=== PATIENT | female | born 1990 | race Caucasian/White ===

== ENCOUNTER 2017-03-30 10:23 | Emergency (ER) | payer OTHER ==
[2017-03-30 10:40] VITALS: BP 123/73; PULSE 88; TEMP 98.1; BMI 33.9
--- NOTE | 2017-03-30 11:42 | PDOC ---
History of Present Illness - General Chief Complaint: Sore Throat Stated Complaint: POSSIBLE STREP THROAT Time Seen by Provider: 03/30/17 11:28 History Source: Patient Exam Limitations: No Limitations - History of Present Illness Initial Comments: 03/30/17 11:38 c/o sore throat since yesterday, low grade fever. Pt's son with same symptoms and rash. no vomiting or diarrhea. Severity: mild Past History - Past Medical History Allergies/Adverse Reactions: Allergies Allergy/AdvReac Type Severity Reaction Status Date / Time kiwi Allergy Intermediate itchy Verified 03/30/17 10:35 throat No Known Drug Allergies Allergy Verified 03/30/17 10:35 Home Medications: Ambulatory Orders Amoxicillin - [Amoxicillin 500mg Capsule -] 500 mg PO BID #20 capsule 03/30/17 Anemia: No Asthma: No Cancer: No Cardiac Disorders: No COPD: No Diabetes: No GI Disorders: Yes (ULCERS) HTN: No Seizures: No Thyroid Disease: No - Surgical History Abdominal Surgery: No Appendectomy: No - Reproductive History (#): 1 Para: 1 - Immunization History Immunization Up to Date: Yes - Suicide/Smoking/Psychosocial Hx Smoking Status: No Smoking History: Never smoked Have you smoked in the past 12 months: No Number of Cigarettes Smoked Daily: 0 Cigars Per Day: 0 Hx Alcohol Use: No Drug/Substance Use Hx: No Substance Use Type: None Hx Substance Use Treatment: No Review of Systems - Review of Systems Able to Perform ROS?: Yes Is the patient limited Macedonian proficient: No Constitutional: Yes: Symptoms Reported HEENTM: Yes: Symptoms Reported Respiratory: No: Symptoms reported Cardiac (ROS): No: Symptoms Reported ABD/GI: No: Symptoms Reported : No: Symptoms Reported Musculoskeletal: No: Symptoms Reported Integumentary: No: Symptoms Reported Neurological: No: Symptoms reported *Physical Exam - Vital Signs Last Vital Signs Temp Pulse Resp BP Pulse Ox 98.1 F 88 17 123/73 98 03/30/17 10:35 03/30/17 10:35 03/30/17 10:35 03/30/17 10:35 03/30/17 10:35 - Physical Exam General Appearance: Yes: Nourished, Appropriately Dressed HEENT: positive: EOMI, ALEX, Pharynx Normal, Pharyngeal Erythema, Tonsillar Erythema. negative: TMs Normal, Tonsillar Exudate Neck: positive: Supple. negative: Tender Respiratory/Chest: positive: Lungs Clear. negative: Chest Tender, Respiratory Distress Cardiovascular: positive: Regular Rhythm, Regular Rate Gastrointestinal/Abdominal: positive: Normal Bowel Sounds, Soft. negative: Tender Lymphatic: negative: Adenopathy Musculoskeletal: positive: Normal Inspection Extremity: positive: Normal Capillary Refill, Normal Inspection, Normal Range of Motion Integumentary: positive: Normal Color, Dry, Warm Neurologic: positive: contact lens flashing puncher II-XII NML intact, Fully Oriented, Alert, Normal Mood/ Affect, Normal Response, Motor Strength /5 Medical Decision Making - Medical Decision Making 03/30/17 11:57 26yr female with c/o sore throat for 2 days and low grade fever. no abd pain. pt states her son has rash and sore throat. pos exudate on left tonsil will treat for strep son with sandpaper rash non toxic stable vitals 03/30/17 11:59 *DC/Admit/Observation/Transfer Diagnosis at time of Disposition: Strep throat - Discharge Dispostion Disposition: HOME Condition at time of disposition: Good - Prescriptions Prescriptions: Amoxicillin - [Amoxicillin 500mg Capsule -] 500 mg PO BID #20 capsule - Referrals - Patient Instructions Additional Instructions: gargle with warms alt water 4-5 times a day take motrin as needed for fever or pain take the Amoxicillin as directed for 10 days return to ER for any worsening symptoms - Post Discharge Activity Forms/Work/School Notes: Back to Work
== END 2017-03-30 11:52 | disposition home or self-care (01) ==
LOC: JERFT 10:23 → JER 10:23 → JERFT 11:52
DX: J02.0 Streptococcal pharyngitis (principal); B95.5 Unspecified streptococcus as the cause of diseases classified elsewhere
CPT/HCPCS: 99281-25

== ENCOUNTER 2017-07-02 10:16 | Emergency (ER) | payer OTHER ==
[2017-07-02 10:31] VITALS: TEMP 98; BMI 33.9
--- NOTE | 2017-07-02 10:34 | PDOC ---
History of Present Illness - General Chief Complaint: Pain Stated Complaint: LT SIDE PAIN Time Seen by Provider: 07/02/17 10:34 - History of Present Illness Initial Comments: 07/02/17 10:34 Ms. Quezada is a 26 yo female w/ pmh of GERD and distant gastric ulcers who presents for evaluation of 1 week of LUQ abdominal pain. She reports this has been intermittent although she cannot relate it to anything specific. She was previously evaluated 1 week ago when this first started and received a right The patient denies chest pain, shortness of breath, headache and dizziness. Denies fever, chills, nausea, vomit, diarrhea and constipation. Denies dysuria, frequency, urgency and hematuria. Allergies: NKDA Past History - Past Medical History Allergies/Adverse Reactions: Allergies Allergy/AdvReac Type Severity Reaction Status Date / Time kiwi Allergy Intermediate itchy Verified 07/02/17 10:26 throat No Known Drug Allergies Allergy Verified 07/02/17 10:26 Home Medications: Ambulatory Orders Omeprazole 20 mg PO DAILY 07/02/17 Sucralfate [Carafate -] 1 gm PO BID #14 tablet 07/02/17 Anemia: No Asthma: No Cancer: No Cardiac Disorders: No COPD: No Diabetes: No GI Disorders: Yes (ULCERS) HTN: No Seizures: No Thyroid Disease: No - Surgical History Abdominal Surgery: No Appendectomy: No - Reproductive History (#): 1 Para: 1 - Immunization History Immunization Up to Date: Yes - Suicide/Smoking/Psychosocial Hx Smoking Status: No Smoking History: Never smoked Have you smoked in the past 12 months: No Number of Cigarettes Smoked Daily: 0 Cigars Per Day: 0 Hx Alcohol Use: No Drug/Substance Use Hx: No Substance Use Type: None Hx Substance Use Treatment: No Review of Systems - Review of Systems Comments:: 07/02/17 10:34 GENERAL/CONSTITUTIONAL: No fever or chills. No weakness. HEAD, EYES, EARS, NOSE AND THROAT: No change in vision. No ear pain or discharge. No sore throat. CARDIOVASCULAR: No chest pain or shortness of breath RESPIRATORY: No cough, wheezing, or hemoptysis. GASTROINTESTINAL: +LLE intermittent pain. No nausea, vomiting, diarrhea or constipation. GENITOURINARY: No dysuria, frequency, or change in urination. MUSCULOSKELETAL: No joint or muscle swelling or pain. No neck or back pain. SKIN: No rash NEUROLOGIC: No headache, vertigo, loss of consciousness, or change in strength/ sensation. ENDOCRINE: No increased thirst. No abnormal weight change HEMATOLOGIC/LYMPHATIC: No anemia, easy bleeding, or history of blood clots. ALLERGIC/IMMUNOLOGIC: No hives or skin allergy. *Physical Exam - Vital Signs Last Vital Signs Temp Pulse Resp BP Pulse Ox 98 F 82 19 117/71 99 07/02/17 10:07/02/17 10:07/02/17 10:07/02/17 10:07/02/17 10:26 - Physical Exam Comments: 07/02/17 10:34 GENERAL: Awake, alert, and fully oriented, in no acute distress HEAD: No signs of trauma, normocephalic, atraumatic EYES: PERRLA, EOMI, sclera anicteric, conjunctiva clear ENT: Auricles normal inspection, hearing grossly normal, nares patent, oropharynx clear without exudates. Moist mucosa NECK: Normal ROM, supple, no lymphadenopathy, JVD, or masses LUNGS: No distress, speaks full sentences, clear to auscultation bilaterally HEART: Regular rate and rhythm, normal S1 and S2, no murmurs, rubs or gallops, peripheral pulses normal and equal bilaterally. ABDOMEN: +LUQ TTP. Soft, normoactive bowel sounds. No guarding, no rebound. No masses EXTREMITIES: Normal inspection, Normal range of motion, no edema. No clubbing or cyanosis. NEUROLOGICAL: Cranial nerves II through XII grossly intact. Normal speech, normal gait, no focal sensorimotor deficits SKIN: Warm, Dry, normal turgor, no rashes or lesions noted. ED Treatment Course - LABORATORY CBC & Chemistry Diagram: 07/02/17 11:45 07/02/17 11:45 Medical Decision Making - Medical Decision Making 07/02/17 11:58 Ms. Quezada is a 26 yo female w/ pmh as described who presents for evaluation of LUQ pain for the last week. History and PE concerning for repeat gastric ulcer. Patient given carafate and protonix for symptomatic and therapeutic relief. Labs grossly wnl as below. 07/02/17 13:05 Patient reporting improvement of symptoms w/ above treatment. Discharging with GI follow-up and Rx for Carafate for treatment. Patient will follow-up [facility] with GI for further evaluation. Laboratory Results - last 24 hr 07/02/17 07/02/17 07/02/17 11:45 11:45 11:45 WBC 3.8 L D RBC 5.03 Hgb 13.5 Hct 40.8 MCV 81.1 MCH 26.8 MCHC 33.1 RDW 12.9 Plt Count 310 MPV 7.0 L Neutrophils % 43.3 D Lymphocytes % 36.9 D Monocytes % 12.5 H Eosinophils % 6.3 H D Basophils % 1.0 Nucleated RBC % 0 Sodium 139 Potassium 4.3 Chloride 107 Carbon Dioxide 25 Anion Gap 7 L BUN 16 Creatinine 0.8 Creat Clearance w eGFR > 60 Random Glucose 110 H Calcium 8.6 Total Bilirubin 0.3 AST 18 ALT 34 Alkaline Phosphatase 68 Total Protein 7.3 Albumin 3.7 Lipase 100 Urine Color Ltyellow Urine Appearance Clear Urine pH 5.0 Ur Specific [place] 1.019 Urine Protein Negative Urine Glucose (UA) Negative Urine Ketones Negative Urine Blood 1+ H Urine Nitrite Negative Urine Bilirubin Negative Urine Urobilinogen Negative Ur Leukocyte Esterase Negative Urine HCG, Qual Negative *DC/Admit/Observation/Transfer Diagnosis at time of Disposition: Abdominal pain Qualifiers: Abdominal location: left upper quadrant Qualified Code(s): R10.12 - Left upper quadrant pain - Discharge Dispostion Disposition: HOME - Prescriptions Prescriptions: Sucralfate [Carafate -] 1 gm PO BID #14 tablet - Referrals Referrals: Florain Baumann MD [Staff Physician] - - Patient Instructions Printed Discharge Instructions: DI for Gastric Ulcer Additional Instructions: Please follow-up with Gastroenterology using provided information next week. Take prescriptions as written unless directed not to by another medical professional. Return to ER if any increase in pain, fever, chills, or other concerning symptoms. - Post Discharge Activity Forms/Work/School Notes: Back to Work
--- NOTE | 2017-07-02 10:38 | PDOC ---
Attending Attestation - HPI HPI: 07/02/17 11:58 Pt is a 26 yo F with PMHx of GERD and gastric ulcers who presents to the ED with LUQ abdominal pain for the past week. Patient reports pain is dull, 7/10 in severity with associated nausea and vomiting. Patient denies fever/chills, diarrhea, constipation. PCP: None - Medical Decision Making 07/02/17 11:58 Documentation prepared by Ale Silva, acting as medical coding technician for Maria Fernanda Wills MD <Ale Silva - Last Filed: 07/02/17 11:58> - Resident Resident Name: Thierno Carver - ED Attending Attestation I have performed the following: I have examined & evaluated the patient, The case was reviewed & discussed with the resident, I agree w/resident's findings & plan, Exceptions are as noted - Physicial Exam PE: GENERAL: Awake, alert, and fully oriented, in no acute distress HEAD: No signs of trauma EYES: PERRLA, EOMI, sclera anicteric, conjunctiva clear ENT: Auricles normal inspection, hearing grossly normal, nares patent, oropharynx clear without exudates. Moist mucosa NECK: Normal ROM, supple, no lymphadenopathy, JVD, or masses LUNGS: Breath sounds equal, clear to auscultation bilaterally. No wheezes, and no crackles HEART: Regular rate and rhythm, normal S1 and S2, no murmurs, rubs or gallops ABDOMEN: Soft, +minimal LUQ tenderness, normoactive bowel sounds. No guarding, no rebound. No masses EXTREMITIES: Normal range of motion, no edema. No clubbing or cyanosis. No cords, erythema, or tenderness NEUROLOGICAL: Cranial nerves II through XII grossly intact. Normal speech, normal gait. Motor and sensation intact. SKIN: Warm, Dry, normal turgor, no rashes or lesions noted. - Medical Decision Making Pt with history of PUD presenting with LUQ pain. No signs of acute abdomen, therefore low suspicion for perf. Suspect GERD/PUD. Will give GI cocktail and reassess. Likely DC home with outpatient GI f/u. <Maria Fernanda Wills - Last Filed: 07/02/17 13:05>
[2017-07-02] MEDS ORDERED: SODIUM CHLORIDE 1,000 ML IV STA (11:22)
[2017-07-02] MEDS ORDERED: PANTOPRAZOLE SODIUM 40 MG VIAL IVPUSH ONE (11:46)
[2017-07-02 12:00] LABS: EOS % 6.3 % (0-4.5); HEMATOCRIT 40.8 % (32.4-45.2); HEMOGLOBIN 13.5 GM/dL (10.7-15.3); LYMPH % 36.9 % (8-40); MCH 26.8 pg (25.7-33.7); MCHC 33.1 g/dl (32.0-36.0); MEAN CELL VOLUME 81.1 fl (80-96); MONO % 12.5 % (3.8-10.2); NEUT % 43.3 % (42.8-82.8); PLATELET COUNT 310 K/MM3 (134-434); RBC 5.03 M/mm3 (3.60-5.2); RDW 12.9 % (11.6-15.6); WHITE BLOOD COUNT 3.8 K/mm3 (4.0-10.0)
[2017-07-02] MEDS ORDERED: SUCRALFATE 1 GM TABLET (FP) PO ONE (12:00)
[2017-07-02] MEDS ORDERED: SUCRALFATE 1 GM TABLET (FP) ONE (12:01)
[2017-07-02] MEDS ORDERED: PANTOPRAZOLE SODIUM 40 MG VIAL ONE (12:02)
[2017-07-02 12:04] LABS: URINE APPEARANCE CLEAR; URINE BILIRUBIN NEGATIVE (<2.0 mg/dL); URINE COLOR LTYELLOW; URINE GLUCOSE (UA) NEGATIVE (NEGATIVE); URINE KETONE NEGATIVE (NEGATIVE); URINE LEUK ESTERASE NEGATIVE (NEGATIVE); URINE NITRITE NEGATIVE (NEGATIVE); URINE PROTEIN NEGATIVE (NEGATIVE); URINE UROBILINOGEN NEGATIVE mg/dL (0.2-1.0)
[2017-07-02] MEDS ORDERED: PANTOPRAZOLE SODIUM 40 MG/100 ML BAG IVPB ONE (12:05)
[2017-07-02 12:09] LABS: HCG,QUALITATIVE URINE NEGATIVE
[2017-07-02 12:22] LABS: ALBUMIN 3.7 g/dl (3.4-5.0); ALK PHOS 68 U/L (45-117); ANION GAP 7 (8-16); BILIRUBIN,TOTAL 0.3 mg/dL (0.2-1.0); BLOOD UREA NITROGEN 16 mg/dL (7-18); CALCIUM 8.6 mg/dL (8.5-10.1); CHLORIDE 107 mmol/L (98-107); CO2 25 mmol/L (21-32); CREATININE 0.8 mg/dL (0.55-1.02); GLUCOSE,RANDOM 110 mg/dL (74-106); LIPASE 100 U/L (73-393); POTASSIUM 4.3 mmol/L (3.5-5.1); SGOT/AST 18 U/L (15-37); SGPT/ALT 34 U/L (12-78); SODIUM 139 mmol/L (136-145); TOT PROT 7.3 g/dl (6.4-8.2)
[2017-07-02 12:59] LABS: EPI CELLS RARE /HPF (FEW); URINE BACTERIA RARE /hpf (NONE SEEN); URINE MUCUS RARE
[2017-07-02 14:25] VITALS: BP 120/72; PULSE 58
== END 2017-07-02 14:00 | disposition home or self-care (01) ==
LOC: JER 10:16
PROC: 3E0337Z Introduction of Electrolytic and Water Balance Substance into Peripheral Vein, Percutaneous Approach (ICD-10-PCS; principal; 2017-07-02)
PROC: 3E033GC Introduction of Other Therapeutic Substance into Peripheral Vein, Percutaneous Approach (ICD-10-PCS; 2017-07-02)
DX: R10.12 Left upper quadrant pain (principal); K21.9 Gastro-esophageal reflux disease without esophagitis; Z87.19 Personal history of other diseases of the digestive system
CPT/HCPCS: 36415; 80053; 81003; 81015; 83690; 84703; 85025; 96361; 96374; 99282-25; J7030

== ENCOUNTER 2017-08-31 09:48 | Day surgery (SDC) | payer OTHER ==
[2017-08-31 10:38] VITALS: BMI 34.7
[2017-08-31 11:02] VITALS: TEMP 98.3
[2017-08-31 12:08] VITALS: BP 116/78; PULSE 60
--- NOTE | 2017-08-31 13:16 | PROC ---
Endoscopy Procedure Endoscopy procedure completed. Please see scanned procedure report.
--- NOTE | 2017-09-01 13:01 | PATH ---
Surgical Pathology Report Patient Name: BRIANNA GRACIA [facility]. Rec. #: [id number] /Age/Gender: 1990 (Age: 27) / F Account: [id number] Location: U-ENDOSCOPY Taken: 08/31/2017 Received: 08/31/2017 Reported: 09/01/2017 Physicians: Florian Baumann M.D. Specimen(s) Received A: BX 2ND PORTION DUODENUM B: BX ANTRUM Clinical History Epigastric pain, history of gastric ulcer Postoperative diagnosis: Same Final Diagnosis A. SECOND PORTION DUODENUM, BIOPSY: DUODENAL MUCOSA WITH NO DIAGNOSTIC ABNORMALITIES. B. ANTRUM, BIOPSY: GASTRIC MUCOSA WITH MILD CHRONIC GASTRITIS. IMMUNOSTAIN IS NEGATIVE FOR H. PYLORI ORGANISMS. Electronically Signed Pola Tirado M.D. Gross Description A. Received in formalin, labeled "biopsy second portion of duodenum" are 2 [place], irregular portions of soft tissue measuring 0.2 and 0.3 cm. in greatest dimension. The specimens are submitted in toto in one cassette. B. Received in formalin, labeled "biopsy antrum" are 2 [place], irregular portions of soft tissue measuring 0.3 and 0.4 cm. in greatest dimension. The specimens are submitted in toto in one cassette. /08/31/201708/31/2017
== END 2017-08-31 12:20 | disposition home or self-care (01) ==
LOC: JASU-ENDO 09:48
PROVIDERS: ATTEND Internal Medicine Gastroenterology
PROC: 0DB68ZX Excision of Stomach, Via Natural or Artificial Opening Endoscopic, Diagnostic (ICD-10-PCS; 2017-08-31)
PROC: 0DB98ZX Excision of Duodenum, Via Natural or Artificial Opening Endoscopic, Diagnostic (ICD-10-PCS; principal; 2017-08-31 09:00)
DX: R10.13 Epigastric pain (principal)
CPT/HCPCS: 84703; 88305-TC; 88342-TC

== ENCOUNTER 2018-04-24 20:41 | Emergency (ER) | payer OTHER ==
[2018-04-24 21:25] VITALS: BP 132/91; PULSE 85; TEMP 98; BMI 37.1
--- NOTE | 2018-04-24 21:26 | PDOC ---
Rapid Medical Evaluation Medical Evaluation: Allergies Allergy/AdvReac Type Severity Reaction Status Date / Time kiwi Allergy Intermediate itchy Verified 07/02/17 10:26 throat No Known Drug Allergies Allergy Verified 07/02/17 10:26 I have performed a brief in-person evaluation of this patient. The patient presents with a chief complaint of: Cough x 3 months, worsening past 2 days; cough can be dry or with phlegm at times; denies smoking; not taking any meds Pertinent physical exam findings: In NAD, no postnasal drip, lungs clear I have ordered the following: UCG, CXR The patient will proceed to the ED for further evaluation. 04/24/18 21:22
[2018-04-24] MEDS ORDERED: ALBUTEROL SO4 2.5/IPRATROPIUM 0.5 INH SOL 3 ML VIAL.NEB. NEB ONE (23:38)
[2018-04-24] MEDS ORDERED: predniSONE 20 MG TABLET (UD) PO ONE (23:38)
--- NOTE | 2018-04-24 23:38 | PDOC ---
History of Present Illness - General History Source: Patient Exam Limitations: No Limitations - History of Present Illness Initial Comments: 04/24/18 23:55 The patient is a 27 year old female with a past medical history of gastric duodenal ulcer who presents to the emergency department for evaluation of a 2 month history of dry non productive cough. Patient reports worsening dry cough in the last 3 days, exacerbated with deep inspiration. 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 Denies headache fevers, chills, nausea, vomiting, diarrhea, constipation, urinary urgency/frequency, dysuria, or hematuria. Denies smoking, recent travel, or prolonged period of immobility. She denies taking any medication for the aforementioned symptom. Allergies: Kiwi, NKDA. 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 No reported alcohol, cigarette, or drug use. Surgical History: gastric duodenal surgery PCP: Dr. Thompson <Trinidad Louis - Last Filed: 04/24/18 23:55> <Cara Wahl - Last Filed: 04/25/18 00:39> - General Chief Complaint: Respiratory Stated Complaint: COUGH Time Seen by Provider: 04/24/18 21:22 Past History <Trinidad Louis - Last Filed: 04/24/18 23:55> - Past Medical History Anemia: No Asthma: No Cancer: No Cardiac Disorders: No COPD: No Diabetes: No GI Disorders: Yes (ULCERS) HTN: No Seizures: No Thyroid Disease: No - Surgical History Abdominal Surgery: No Appendectomy: No - Reproductive History (#): 1 Para: 1 - Immunization History Immunization Up to Date: Yes - Suicide/Smoking/Psychosocial Hx Smoking Status: No Smoking History: Never smoked Have you smoked in the past 12 months: No Number of Cigarettes Smoked Daily: 0 Cigars Per Day: 0 Information on smoking cessation initiated: No Hx Alcohol Use: No Drug/Substance Use Hx: No Substance Use Type: None Hx Substance Use Treatment: No <Cara Wahl - Last Filed: 04/25/18 00:39> - Past Medical History Allergies/Adverse Reactions: Allergies Allergy/AdvReac Type Severity Reaction Status Date / Time kiwi Allergy Intermediate itchy Verified 04/24/18 21:25 throat No Known Drug Allergies Allergy Verified 04/24/18 21:25 Home Medications: Ambulatory Orders Omeprazole 20 mg PO DAILY 07/02/17 Etonogestrel 08/31/17 Albuterol Sulfate Inhaler - [Ventolin Hfa Inhaler -] 1 - 2 inh PO QID #1 inhaler 04/24/18 Azithromycin [Zithromax -] 250 mg PO UTDICT #6 tab 04/24/18 Methylprednisolone [Medrol Dose Pierce] 4 mg PO ASDIR #21 tablet 04/24/18 Review of Systems - Review of Systems Comments:: 04/24/18 23:56 CONSTITUTIONAL: Absent: fever, chills, diaphoresis, generalized weakness, malaise, loss of appetite HEENT: Absent: rhinorrhea, nasal congestion, throat pain, throat swelling, difficulty swallowing, mouth swelling, ear pain, eye pain, visual Changes CARDIOVASCULAR: Absent: chest pain, syncope, palpitations, irregular heart rate, lightheadedness , peripheral edema RESPIRATORY: (+)Dry cough. Absent: shortness of breath, dyspnea with exertion, orthopnea, wheezing, stridor , hemoptysis GASTROINTESTINAL: Absent: abdominal pain, abdominal distension, nausea, vomiting, diarrhea, constipation, melena, hematochezia GENITOURINARY: Absent: dysuria, frequency, urgency, hesitancy, hematuria, flank pain, genital pain MUSCULOSKELETAL: Absent: myalgia, arthralgia, joint swelling SKIN: Absent: rash, itching, pallor HEMATOLOGIC/IMMUNOLOGIC: Absent: easy bleeding, easy bruising, lymphadenopathy, frequent infections ENDOCRINE: Absent: unexplained weight gain, unexplained weight loss, heat intolerance, cold intolerance NEUROLOGIC: Absent: headache, focal weakness or paresthesias, dizziness, unsteady gait, seizure, mental status changes, bladder or bowel incontinence PSYCHIATRIC: Absent: anxiety, depression, suicidal or homicidal ideation, hallucinations. <Trinidad Louis - Last Filed: 04/24/18 23:55> *Physical Exam - Vital Signs Last Vital Signs Temp Pulse Resp BP Pulse Ox 98.0 F 85 16 132/91 100 04/24/18 21:23 04/24/18 21:23 04/24/18 21:23 04/24/18 21:23 04/24/18 21:23 - Physical Exam Comments: 04/24/18 23:56 GENERAL: Well developed, well nourished. Awake and alert. No acute distress. HEENT: Normocephalic, atraumatic. PERRLA, EOMI. No conjunctival pallor. Sclera are non- icteric. Moist mucous membranes. Oropharynx is clear. NECK: Supple. Full ROM. No JVD. Carotid pulses 2+ and symmetric, without bruits. No thyromegaly. No lymphadenopathy. CARDIOVASCULAR: Regular rate and rhythm. No murmurs, rubs, or gallops. Distal pulses are 2+ and symmetric. PULMONARY: No evidence of respiratory distress. Lungs clear to auscultation bilaterally. No wheezing, rales or rhonchi. ABDOMINAL: Soft. Non-tender. Non-distended. No rebound or guarding. No organomegaly. Normoactive bowel sounds. MUSCULOSKELETAL Normal range of motion at all joints. No bony deformities or tenderness. No CVA tenderness. EXTREMITIES: No cyanosis. No clubbing. No edema. No calf tenderness. SKIN: Warm and dry. Normal capillary refill. No rashes. No jaundice. NEUROLOGICAL: Alert, awake, appropriate. Cranial nerves 2-12 intact. No deficits to light touch and temperature in face, upper extremities and lower extremities. No motor deficits in the in face, upper extremities and lower extremities. Normoreflexic in the upper and lower extremities. Normal speech. Toes are down- going bilaterally. Gait is normal without ataxia. PSYCHIATRIC: Cooperative. Good eye contact. Appropriate mood and affect. <Trinidad Louis - Last Filed: 04/24/18 23:55> - Vital Signs Last Vital Signs Temp Pulse Resp BP Pulse Ox 98.0 F 85 16 132/91 100 04/24/18 21:23 04/24/18 21:23 04/24/18 21:23 04/24/18 21:23 04/24/18 21:23 <Cara Wahl - Last Filed: 04/25/18 00:39> Moderate Sedation - Procedure Monitoring Vital Signs: Procedure Monitoring Vital Signs Temperature 98.0 F 04/24/18 21:23 Pulse Rate 85 04/24/18 21:23 Respiratory Rate 16 04/24/18 21:23 Blood Pressure 132/91 04/24/18 21:23 O2 Sat by Pulse Oximetry (%) 100 04/24/18 21:23 <Trinidad Luois - Last Filed: 04/24/18 23:55> - Procedure Monitoring Vital Signs: Procedure Monitoring Vital Signs Temperature 98.0 F 04/24/18 21:23 Pulse Rate 85 04/24/18 21:23 Respiratory Rate 16 04/24/18 21:23 Blood Pressure 132/91 04/24/18 21:23 O2 Sat by Pulse Oximetry (%) 100 04/24/18 21:23 <Cara Wahl - Last Filed: 04/25/18 00:39> ED Treatment Course - ADDITIONAL ORDERS Additional order review: Laboratory Results 04/24/18 21:38 Urine HCG, Qual Negative <Trinidad Louis - Last Filed: 04/24/18 23:55> - ADDITIONAL ORDERS Additional order review: Laboratory Results 04/24/18 21:38 Urine HCG, Qual Negative <Cara Wahl - Last Filed: 04/25/18 00:39> Medical Decision Making - Medical Decision Making 04/25/18 00:37 27-year-old female has had a dry persistent cough for more than a month. She has no fever or chills. Chest x-ray does not show any infiltrates, no effusions, no no pneumothorax. Lungs clear to auscultation impression bronchitis, atypical cough variant asthma Prescriptions for Medrol Dosepak, Zithromax, Ventolin MDI sent to her pharmacy <Cara Wahl - Last Filed: 04/25/18 00:39> *DC/Admit/Observation/Transfer - Attestations Scribe Attestion: 04/24/18 23:56 Documentation prepared by Trinidad Louis, acting as medical instrument cable fabricator for Cara Wahl MD. <Trinidad Louis - Last Filed: 04/24/18 23:55> <Cara Wahl - Last Filed: 04/25/18 00:39> Diagnosis at time of Disposition: Cough, Persistent cough for 3 weeks or longer - Discharge Dispostion Disposition: HOME Condition at time of disposition: Stable - Prescriptions Prescriptions: Albuterol Sulfate Inhaler - [Ventolin Hfa Inhaler -] 1 - 2 inh PO QID #1 inhaler Azithromycin [Zithromax -] 250 mg PO UTDICT #6 tab Methylprednisolone [Medrol Dose Pierce] 4 mg PO ASDIR #21 tablet - Referrals Referrals: Misael Fowler MD, MD [Staff Physician] - - Patient Instructions Printed Discharge Instructions: DI for Acute Bronchitis Additional Instructions: 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 Fowler
[2018-04-24] MEDS ORDERED: AZITHROMYCIN 500 MG TABLET PO ONE (23:39)
[2018-04-25] MEDS ORDERED: ALBUTEROL SO4 2.5/IPRATROPIUM 0.5 INH SOL 3 ML VIAL.NEB. NEB ONE (00:35)
[2018-04-25] MEDS ORDERED: AZITHROMYCIN 250 MG TABLET ONE (00:35)
[2018-04-25] MEDS ORDERED: predniSONE 20 MG TABLET (UD) ONE (00:35)
== END 2018-04-25 01:11 | disposition home or self-care (01) ==
LOC: JERFT 20:41 → JER 20:41
DX: R05 Cough (principal)
CPT/HCPCS: 71046-TC-FY; 84703; 87798; 99281-25

== ENCOUNTER 2018-07-22 18:50 | Emergency (ER) | payer OTHER ==
[2018-07-22 19:11] VITALS: TEMP 97.8; BMI 37.1
[2018-07-22] MEDS ORDERED: SODIUM CHLORIDE 0.9% 1000 ML INFUS.BAG IV ONE (19:30)
--- NOTE | 2018-07-22 19:50 | PDOC ---
History of Present Illness - General Chief Complaint: Headache Stated Complaint: DIZZINESS, HEADACHE Time Seen by Provider: 07/22/18 19:09 History Source: Patient Exam Limitations: No Limitations - History of Present Illness Initial Comments: 07/22/18 19:45 27F with a PMH of anxiety and pre-diabetes who presents to the ER with complaints of lightheadedness. 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 She took her BP and noticed it was 180's/100's; checked again and it was 170/105. She has never had elevated BP in the past. However, she states that she's had the tingling in her face and palms in the past. She denies any headache, numbness, weakness, changes in vision, CP, SOB, vomiting, fever, chills. She admits to feeling "kind of nauseous", lightheaded, and dysuria. She admits to getting "some" anxiety attacks in the past but denies currently feeling anxious. Past History - Past Medical History Allergies/Adverse Reactions: Allergies Allergy/AdvReac Type Severity Reaction Status Date / Time kiwi Allergy Intermediate itchy Verified 07/22/18 19:11 throat No Known Drug Allergies Allergy Verified 07/22/18 19:11 Home Medications: Ambulatory Orders Fluconazole 150 mg PO ONCE #1 tablet 07/22/18 Anemia: No Asthma: No Cancer: No Cardiac Disorders: No (pre eclampsia) COPD: No Diabetes: No GI Disorders: Yes (ULCERS) HTN: No Seizures: No Thyroid Disease: No - Surgical History Abdominal Surgery: No Appendectomy: No - Reproductive History (#): 1 Para: 1 - Immunization History Immunization Up to Date: Yes - Suicide/Smoking/Psychosocial Hx Smoking Status: No Smoking History: Current some day smoker Have you smoked in the past 12 months: No Number of Cigarettes Smoked Daily: 0 Cigars Per Day: 0 Information on smoking cessation initiated: No Hx Alcohol Use: No Drug/Substance Use Hx: No Substance Use Type: None Hx Substance Use Treatment: No Review of Systems - Review of Systems Able to Perform ROS?: Yes Comments:: 07/22/18 19:48 GENERAL/CONSTITUTIONAL: No fever or chills. No weakness. HEAD, EYES, EARS, NOSE AND THROAT: No change in vision. No ear pain or discharge. No sore throat. CARDIOVASCULAR: + for lightheadedness. No chest pain or palpitations. RESPIRATORY: No cough, wheezing, shortness of breath, or hemoptysis. GASTROINTESTINAL: + for nausea. No abdominal pain, vomiting, diarrhea, or constipation. GENITOURINARY: + for dysuria. No frequency, hematuria, or change in urination. MUSCULOSKELETAL: No joint or muscle swelling or pain. No neck or back pain. SKIN: No rash or lesions. NEUROLOGIC: + for tingling. No headache, numbness, focal weakness, loss of consciousness, or change in strength/sensation. Is the patient limited Slovak proficient: No *Physical Exam - Vital Signs Last Vital Signs Temp Pulse Resp BP Pulse Ox 97.8 F 90 16 144/105 H 100 07/22/18 18:58 07/22/18 18:58 07/22/18 18:58 07/22/18 18:58 07/22/18 18:58 - Physical Exam Comments: 07/22/18 19:49 GENERAL: Well developed, well nourished. Awake and alert. No acute distress. HEENT: Normocephalic, atraumatic. Hearing grossly normal. Moist mucous membranes. PERRLA, EOMI. No conjunctival pallor. Sclera are non-icteric. NECK: Supple. Full ROM. No JVD. CARDIOVASCULAR: Regular rate and rhythm. No murmurs, rubs, or gallops. PULMONARY: No evidence of respiratory distress. Lungs clear to auscultation bilaterally. No wheezing, rales or rhonchi. ABDOMINAL: Soft. Tenderness to deep palpation in LLQ. Non-distended. No rebound or guarding. GENITOURINARY: No CVA tenderness bilaterally. MUSCULOSKELETAL: Normal range of motion at all joints. No bony deformities or tenderness. EXTREMITIES: No cyanosis. No clubbing. No edema. No calf tenderness or swelling. SKIN: Warm and dry. Normal capillary refill. No rashes. No jaundice. NEUROLOGICAL: Alert, awake, appropriate. Cranial nerves 2-12 intact. No deficits to light touch and temperature in face, upper extremities and lower extremities. 5/5 strength in deltoids, biceps, triceps, quadriceps, hamstrings, and gastrocnemius. Normal speech. Gait is normal without ataxia. PSYCHIATRIC: Cooperative. Good eye contact. Appropriate mood and affect. ED Treatment Course - LABORATORY CBC & Chemistry Diagram: 07/22/18 19:30 07/22/18 19:30 Medical Decision Making - Medical Decision Making 07/22/18 19:50 27F with a PMH of prediabetes and anxiety who presents to the ED with complaints of lightheadedness and elevated BP. EKG unremarkable. PE unremarkable. Will obtain FS and give IV hydration. Pt also requests STI checking which has been ordered. Will check CBC, CMP, UA, TSH, drug screen. Pt otherwise well appearing. If Cr normal, will send for outpt treatment for asymptomatic HTN. BP elevated on my assessment at 140/105. 07/22/18 20:21 CBC and UA unremarkable. Upreg negative. Will give reglan. Pt states that the tingling has resolved but still feels "a little" nauseous and lightheaded. 07/22/18 21:35 Labs WNL. STI labs pending 2 days. Call back placed. Pt states she feels "much better" and has a PCP to f/u with. Will finish hydration and reassess. Cr WNL. 07/22/18 21:58 External pelvic exam done w/ Dr. Brower and RN Sonja which reveals possible candidiasis. Will give fluconazole in ED and send one for outpt use. Pt states she feels much better. Will d/c with PCP f/u. *DC/Admit/Observation/Transfer Diagnosis at time of Disposition: Lightheaded - Discharge Dispostion Disposition: HOME Condition at time of disposition: Stable Decision to Admit order: No - Prescriptions Prescriptions: Fluconazole 150 mg PO ONCE #1 tablet - Referrals Referrals: Rehana Wen [Primary Care Provider] - - Patient Instructions Printed Discharge Instructions: DI for Anxiety -- Adult Additional Instructions: Your ER visit is not complete until your follow up with your primary care physician. Please follow up with your primary care physician in 1-2 days. Please return to the ER if you have any signs or symptoms of chest pain, shortness of breath, uncontrollable fever, chills, nausea, vomiting, numbness, tingling, or weakness in any part of your body, changes in vision, or slurred speech. Take your fluconazole (Diflucan) in 72 hours if your symptoms persist. Please return to the ER if symptoms persist, worsen, or new symptoms arise. - Post Discharge Activity
[2018-07-22 19:55] LABS: BASO % 0.9 % (0-2.0); EOS % 1.1 % (0-4.5); HEMATOCRIT 38.8 % (32.4-45.2); HEMOGLOBIN 12.8 GM/dL (10.7-15.3); LYMPH % 33.2 % (8-40); MCH 27.2 pg (25.7-33.7); MCHC 33.1 g/dl (32.0-36.0); MEAN CELL VOLUME 82.1 fl (80-96); MEAN PLT VOLUME 7.2 fl (7.5-11.1); MONO % 7.7 % (3.8-10.2); NEUT % 57.1 % (42.8-82.8); PLATELET COUNT 360 K/MM3 (134-434); RBC 4.73 M/mm3 (3.60-5.2); RDW 13.1 % (11.6-15.6); WHITE BLOOD COUNT 6.7 K/mm3 (4.0-10.0)
[2018-07-22 19:57] LABS: URINE APPEARANCE CLEAR; URINE BILIRUBIN NEGATIVE (NEGATIVE); URINE COLOR YELLOW; URINE GLUCOSE (UA) NEGATIVE (NEGATIVE); URINE KETONE NEGATIVE (NEGATIVE); URINE LEUK ESTERASE NEGATIVE (NEGATIVE); URINE NITRITE NEGATIVE (NEGATIVE); URINE PROTEIN NEGATIVE (NEGATIVE)
[2018-07-22 20:00] LABS: HCG,QUALITATIVE URINE Negative
[2018-07-22] MEDS ORDERED: METOCLOPRAMIDE HCL INJECTION 10 MG/2 ML VIAL IVPB ONE (20:21)
[2018-07-22 20:32] LABS: BILIRUBIN,TOTAL 0.4 mg/dL (0.2-1); BLOOD UREA NITROGEN 11.6 mg/dL (7-18); CALCIUM 9.4 mg/dL (8.5-10.1); CREATININE 0.9 mg/dL (0.55-1.3); POTASSIUM 3.8 mmol/L (3.5-5.1); TOT PROT 7.2 g/dl (6.4-8.2)
--- NOTE | 2018-07-22 20:42 | PDOC ---
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 She notes she has felt facial & hand tingling in the past, but the return of her tingling combined with the elevated BP readings prompted her visit. The patient denies chest pain, shortness of breath, and dizziness. Denies fever, chills, vomit, diarrhea and constipation. Denies dysuria, frequency, urgency and hematuria. Allergies: NKDA Past surgical history: Gastric duodenal surgery Social history: No reported cigarette, alcohol, or drug use. PCP: Dr. Wen - Physicial Exam PE: 07/22/18 21:42 GENERAL: Awake, alert, and fully oriented, in no acute distress. HEAD: No signs of trauma EYES: PERRLA, EOMI, sclera anicteric, conjunctiva clear ENT: Auricles normal inspection, hearing grossly normal, nares patent, oropharynx clear without exudates. Moist mucosa NECK: Nontender, no stepoffs, Normal ROM, supple, no lymphadenopathy, JVD, or masses LUNGS: Breath sounds equal, clear to auscultation bilaterally. No wheezes, and no crackles HEART: Regular rate and rhythm, normal S1 and S2, no murmurs, rubs or gallops ABDOMEN: Soft, nontender, normoactive bowel sounds. No guarding, no rebound. No masses EXTREMITIES: Normal range of motion, no edema. No clubbing or cyanosis. No cords , erythema, or tenderness NEUROLOGICAL: Cranial nerves II through XII intact. 5/5 strength and sensation in all extremities, Normal speech, normal gait, normal cerebellar function SKIN: Warm, Dry, normal turgor, no rashes or lesions noted. - Medical Decision Making 07/22/18 20:49 Part of this documentation prepared by Fran Garzon, acting as chief medical director for Ning Brower MD. <Fran Garzon - Last Filed: 07/22/18 21:42> - Resident Resident Name: Pankaj Rasmussen - ED Attending Attestation I have performed the following: I have examined & evaluated the patient, The case was reviewed & discussed with the resident, I agree w/resident's findings & plan - Medical Decision Making 07/22/18 21:57 Pt has a vaginal yeast infection that continues, causing some irritation. She will be treated with a single dose of diflucan here in the ER. We will send one to her pharmacy. as well. <Ning Brower - Last Filed: 07/22/18 21:58>
[2018-07-22] MEDS ORDERED: METOCLOPRAMIDE HCL INJECTION 10 MG/2 ML VIAL ONE (20:46)
[2018-07-22 21:05] LABS: COCAINE, UR NEGATIVE ng/ml (CUTOFF=300); METHADONE, UR NEGATIVE ng/ml (CUTOFF=300); PHENCYCLIDINE,URINE NEGATIVE ng/ml (CUTOFF=25); URINE AMPHETAMINES NEGATIVE ng/ml (CUTOFF=500); URINE BARBITURATES NEGATIVE ng/ml (CUTOFF=200); URINE BENZODIAZEPINES NEGATIVE ng/ml (CUTOFF=200)
[2018-07-22 21:06] LABS: OPIATES, URI NEGATIVE ng/ml (CUTOFF=300)
[2018-07-22 21:49] VITALS: BP 130/89; PULSE 67
[2018-07-22] MEDS ORDERED: FLUCONAZOLE 50 MG TABLET PO ONE (21:55)
[2018-07-22] MEDS ORDERED: FLUCONAZOLE 100 MG TABLET (UD) ONE (21:57)
[2018-07-23 03:06] LABS: RPR NONREACTIVE (NONREACTIVE)
--- NOTE | 2018-07-23 10:08 | EKG ---
Test Reason : Blood Pressure : / mmHG Vent. Rate : 078 BPM Atrial Rate : 078 BPM P-R Int : 188 ms QRS Dur : 090 ms QT Int : 362 ms P-R-T Axes : 028 062 042 degrees QTc Int : 412 ms NORMAL SINUS RHYTHM NORMAL ECG WHEN COMPARED WITH ECG OF 23-FEB-2015 21:53, NO SIGNIFICANT CHANGE WAS FOUND Confirmed by MUNIRA MYLES MD ([id number]) on 07/23/2018 10:08:07 AM Referred By: Confirmed By:MUNIRA MYLES MD
== END 2018-07-22 22:04 | disposition home or self-care (01) ==
LOC: JER 18:50
PROC: 3E033GC Introduction of Other Therapeutic Substance into Peripheral Vein, Percutaneous Approach (ICD-10-PCS; principal; 2018-07-22)
PROC: 3E0337Z Introduction of Electrolytic and Water Balance Substance into Peripheral Vein, Percutaneous Approach (ICD-10-PCS; 2018-07-22)
DX: R42 Dizziness and giddiness (principal); F41.9 Anxiety disorder, unspecified
CPT/HCPCS: 36415; 80053; 80307; 81003; 84443; 84703; 85025; 86593; 86706; 87389; 87491; 87591; 93005; 93010; 96374; 99283-25; J7030

== ENCOUNTER 2018-08-19 05:09 | Emergency (ER) | payer OTHER ==
[2018-08-19 06:16] VITALS: BMI 38.2
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
[2018-08-19 08:46] LABS: BASO % 1.1 % (0-2.0); EOS % 1.5 % (0-4.5); HEMATOCRIT 36.4 % (32.4-45.2); HEMOGLOBIN 12.5 GM/dL (10.7-15.3); LYMPH % 38.9 % (8-40); MCH 28.2 pg (25.7-33.7); MCHC 34.4 g/dl (32.0-36.0); MEAN CELL VOLUME 82.1 fl (80-96); MEAN PLT VOLUME 7.1 fl (7.5-11.1); MONO % 10.5 % (3.8-10.2); RBC 4.43 M/mm3 (3.60-5.2); RDW 13.2 % (11.6-15.6); WHITE BLOOD COUNT 6.8 K/mm3 (4.0-10.0)
[2018-08-19 09:04] LABS: PLATELET COUNT 333 K/MM3 (134-434)
[2018-08-19 09:20] LABS: ALBUMIN 3.6 g/dl (3.4-5.0); BILIRUBIN,TOTAL 0.3 mg/dL (0.2-1); CALCIUM 8.6 mg/dL (8.5-10.1); POTASSIUM 3.7 mmol/L (3.5-5.1); TOT PROT 6.6 g/dl (6.4-8.2)
[2018-08-19 10:09] LABS: HYALINE CASTS 3 /lpf (0-8); PH,URINE 5.5 (5.0-8.0); URINE APPEARANCE CLEAR; URINE BACTERIA 131.9 /hpf (NEGATIVE); URINE BILIRUBIN NEGATIVE (NEGATIVE); URINE COLOR YELLOW; URINE GLUCOSE (UA) NEGATIVE (NEGATIVE); URINE KETONE TRACE (NEGATIVE); URINE LEUK ESTERASE NEGATIVE (NEGATIVE); URINE NITRITE NEGATIVE (NEGATIVE); URINE PROTEIN NEGATIVE (NEGATIVE); URINE RBC 6 /hpf (0-4); URINE WBC 3 /hpf (0-5)
[2018-08-19] MEDS ORDERED: SULFAMETHOXAZOLE/TRIMETHOPRIM 800MG/160MG D.S. TABLET PO ONE (10:23)
[2018-08-19] MEDS ORDERED: SULFAMETHOXAZOLE/TRIMETHOPRIM 800MG/160MG D.S. TABLET ONE (10:51)
[2018-08-19 10:58] VITALS: BP 112/71; PULSE 83; TEMP 98.9
== END 2018-08-19 11:02 | disposition home or self-care (01) ==
LOC: JER 05:09
DX: N39.0 Urinary tract infection, site not specified (principal)
CPT/HCPCS: 36415; 80053; 81003; 83605; 84443; 84702; 85025; 87077; 87086; 87491; 87591; 99282-25

== ENCOUNTER 2018-11-09 18:05 | Emergency (ER) | payer OTHER ==
[2018-11-09 18:28] VITALS: BP 139/87; PULSE 78; TEMP 98; BMI 38.1
--- NOTE | 2018-11-09 18:30 | PDOC ---
Rapid Medical Evaluation Time Seen by Provider: 11/09/18 18:24 Medical Evaluation: Allergies Allergy/AdvReac Type Severity Reaction Status Date / Time kiwi Allergy Intermediate itchy Verified 08/19/18 05:55 throat No Known Drug Allergies Allergy Verified 08/19/18 05:55 11/09/18 18:25 I have performed a brief in-person evaluation of this patient. The patient presents with a chief complaint of: 1 week of sore throat, non bloody cough productive of green mucus, runny nose, chills. No known sick contacts. MOtrin does not help. Pt would like to get tested for strep. Pertinent physical exam findings: Diffuse mild pharyngeal erythema, no exudates , no tonsillar inflammation I have ordered the following: Rapid strep, UCG The patient will proceed to the ED for further evaluation. Discharge Disposition - Diagnosis Upper respiratory infection Qualifiers: URI type: unspecified URI Qualified Code(s): J06.9 - Acute upper respiratory infection, unspecified - Referrals - Patient Instructions - Post Discharge Activity
[2018-11-09] MEDS ORDERED: IBUPROFEN 400 MG TABLET (FP) PO ONE (19:16)
--- NOTE | 2018-11-09 19:22 | PDOC ---
History of Present Illness - General Chief Complaint: Sore Throat Stated Complaint: SORE THROAT Time Seen by Provider: 11/09/18 18:24 History Source: Patient - History of Present Illness Timing/Duration: reports: week Past History - Past Medical History Allergies/Adverse Reactions: Allergies Allergy/AdvReac Type Severity Reaction Status Date / Time [place] Allergy Intermediate itchy Verified 11/09/18 18:25 throat No Known Drug Allergies Allergy Verified 11/09/18 18:25 Home Medications: Ambulatory Orders NK [No Known Home Medication] 11/09/18 Anemia: No Asthma: No Cancer: No Cardiac Disorders: No (pre eclampsia) COPD: No Diabetes: No GI Disorders: Yes (ULCERS) HTN: No Seizures: No Thyroid Disease: No - Surgical History Abdominal Surgery: No Appendectomy: No - Reproductive History (#): 1 Para: 1 - Immunization History Immunization Up to Date: Yes - Psycho Social/Smoking Cessation Hx Smoking Status: No Smoking History: Never smoked Have you smoked in the past 12 months: No Number of Cigarettes Smoked Daily: 0 Cigars Per Day: 0 Hx Alcohol Use: No Drug/Substance Use Hx: No Substance Use Type: None Hx Substance Use Treatment: No Review of Systems - Review of Systems Constitutional: No: Chills, Fever HEENTM: Yes: Throat Pain. No: Ear Pain, Nose Pain, Nose Congestion Respiratory: Yes: Cough *Physical Exam - Vital Signs Last Vital Signs Temp Pulse Resp BP Pulse Ox 98 F 78 18 139/87 100 11/09/18 18:25 11/09/18 18:25 11/09/18 18:25 11/09/18 18:25 11/09/18 18:25 - Physical Exam General Appearance: Yes: Appropriately Dressed. No: Apparent Distress HEENT: positive: Normal ENT Inspection, Normal Voice, TMs Normal, Pharynx Normal. negative: Scleral Icterus (R), Scleral Icterus (L) Neck: positive: Supple. negative: Lymphadenopathy (R), Lymphadenopathy (L) Respiratory/Chest: negative: Respiratory Distress Integumentary: positive: Dry, Warm Neurologic: positive: Fully Oriented, Alert, Normal Mood/Affect Medical Decision Making - Medical Decision Making 11/09/18 19:16 28-year-old female with no significant history here with sore throat with cough and body aches x1 week. No fever shortness of breath chest pain or diarrhea. No sick contacts or recent travel see exam Viral URI Exam unremarkable Rapid strep neg DC w/ supportive tx Discharge - Discharge Information Problems reviewed: Yes Clinical Impression/Diagnosis: Upper respiratory infection Qualifiers: URI type: unspecified URI Qualified Code(s): J06.9 - Acute upper respiratory infection, unspecified Disposition: HOME - Follow up/Referral - Patient Discharge Instructions Patient Printed Discharge Instructions: DI for Viral Upper Respiratory Infection -- Adult - Post Discharge Activity Work/Back to School Note: Back to Work
== END 2018-11-09 19:26 | disposition home or self-care (01) ==
LOC: JERFT 18:05
DX: J06.9 Acute upper respiratory infection, unspecified (principal); Z91.018 Allergy to other foods
CPT/HCPCS: 87070; 87880; 99281-25

== ENCOUNTER 2018-12-13 11:24 | Emergency (ER) | payer OTHER ==
[2018-12-13 11:38] VITALS: BP 115/84; PULSE 102; TEMP 99.9; BMI 37.1
[2018-12-13] MEDS ORDERED: IBUPROFEN 600 MG TABLET (FP) PO ONE ×2 (11:42→11:49)
--- NOTE | 2018-12-13 11:51 | PDOC ---
History of Present Illness - General Chief Complaint: Cold Symptoms Stated Complaint: FLU SYSMPTOMS Time Seen by Provider: 12/13/18 11:42 - History of Present Illness Initial Comments: 12/13/18 11:51 CHIEF COMPLAINT: sore throat HISTORY OF PRESENT ILLNESS: 28 yo F presents to [facility] with body aches and sore throat x 2 days. Patient reports fever at home Tmax 102.9. Reports waking up this morning with throat pain and dysphagia. No recent travel or sick contacts. PAST MEDICAL HISTORY: Denies past medical history FAMILY HISTORY: Denies SOCIAL HISTORY: Denies tobacco, alcohol, illicit drug use. SURGICAL HISTORY: Denies ALLERGIES: No known drug allergies REVIEW OF SYSTEMS General/Constitutional: Fever, body aches. Denies weakness, weight change. HEENT: Sore throat. Denies change in vision. Denies ear pain or discharge. Denies sore throat. Cardiovascular: Denies chest pain or shortness of breath. Respiratory: Denies cough, wheezing, or hemoptysis. Gastrointestinal: Denies nausea, vomiting, diarrhea or constipation. Denies rectal bleeding. Genitourinary: Denies dysuria, frequency, or change in urination. Musculoskeletal: Denies joint or muscle swelling or pain. Denies neck or back pain. Skin and breasts: Denies rash or easy bruising. Neurologic: Denies headache, vertigo, loss of consciousness, or loss of sensation. Psychiatric: Denies depression or anxiety. PHYSICAL EXAM General Appearance: Well-appearing, appropriately dressed. No apparent distress , no intoxication. HEENT: Exudate to R tonsil. EOMI, PERRLA, normal voice, TMs normal. No conjunctival pallor. No photophobia, scleral icterus. Neck: Supple. Trachea midline. No tenderness, rigidity, carotid bruit, stridor , lymphadenopathy, or thyromegaly. Respiratory/Chest: Lungs CTAB. No shortness of breath, chest tenderness, respiratory distress, accessory muscle use. No crackles, rales, rhonchi, stridor , wheezing, dullness Cardiovascular: RRR. S1, S2. No JVD, murmur, bradycardia, tachycardia. Vascular Pulses: Dorsalis-Pedis (R): 2+, Dorsalis-Pedis (L): 2+ Gastrointestinal/Abdominal: Normal bowel sounds. Abdomen soft, non-distended. No tenderness or rebound tenderness. No organomegaly, pulsatile mass, guarding , hernia, hepatomegaly, splenomegaly. Lymphatic: No adenopathy, tenderness. Musculoskeletal/Extremities: Normal inspection. FROM of all extremities, normal capillary refill. Pelvis Stable. No CVA tenderness. No tenderness to extremities, pedal edema, swelling, erythema or deformity. Integumentary: Appropriate color, dry, warm. 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 Fully oriented, alert. Appropriate mood/affect. Motor strength 5/5. No appreciable EOM palsy, facial droop or sensory deficit. 12/13/18 12:47 Past History - Past Medical History Allergies/Adverse Reactions: Allergies Allergy/AdvReac Type Severity Reaction Status Date / Time kiwi Allergy Intermediate itchy Verified 12/13/18 11:38 throat No Known Drug Allergies Allergy Verified 12/13/18 11:38 Home Medications: Ambulatory Orders Ibuprofen [Motrin -] 600 mg PO TID #21 tablet 12/13/18 Anemia: No Asthma: No Cancer: No Cardiac Disorders: No (pre eclampsia) COPD: No Diabetes: No GI Disorders: Yes (ULCERS) HTN: No Seizures: No Thyroid Disease: No - Surgical History Abdominal Surgery: No Appendectomy: No - Reproductive History (#): 1 Para: 1 - Immunization History Immunization Up to Date: Yes - Psycho Social/Smoking Cessation Hx Smoking Status: No Smoking History: Never smoked Have you smoked in the past 12 months: No Number of Cigarettes Smoked Daily: 0 Cigars Per Day: 0 Hx Alcohol Use: No Drug/Substance Use Hx: No Substance Use Type: None Hx Substance Use Treatment: No *Physical Exam - Vital Signs Last Vital Signs Temp Pulse Resp BP Pulse Ox 99.9 F H 102 H 18 115/84 99 12/13/18 11:35 12/13/18 11:35 12/13/18 11:35 12/13/18 11:35 12/13/18 11:35 Medical Decision Making - Medical Decision Making 12/13/18 13:01 28 yo F presents to [facility] with body aches and sore throat x 2 days -motrin patient refused tylenol -toradol strep positive patient prefers bicillin IM vs amox po Discharge - Discharge Information Problems reviewed: Yes Clinical Impression/Diagnosis: Strep pharyngitis Condition: Stable Disposition: HOME - Admission No - Additional Discharge Information Prescriptions: Ibuprofen [Motrin -] 600 mg PO TID #21 tablet - Follow up/Referral - Patient Discharge Instructions Patient Printed Discharge Instructions: DI for Strep Throat - Post Discharge Activity Work/Back to School Note: Back to Work
[2018-12-13] MEDS ORDERED: KETOROLAC TROMETHAMINE 60 MG/2 ML VIAL IM ONE (11:52)
[2018-12-13] MEDS ORDERED: KETOROLAC TROMETHAMINE 60 MG/2 ML VIAL ONE (11:52)
[2018-12-13] MEDS ORDERED: PENICILLIN G BENZATHINE 1,200,000 UNIT/2 ML PFS IM ONE ×2 (12:32→12:34)
== END 2018-12-13 12:52 | disposition home or self-care (01) ==
LOC: JERFT 11:24
PROC: 3E0333Z Introduction of Anti-inflammatory into Peripheral Vein, Percutaneous Approach (ICD-10-PCS; principal; 2018-12-13)
PROC: 3E02329 Introduction of Other Anti-infective into Muscle, Percutaneous Approach (ICD-10-PCS; 2018-12-13)
DX: J02.0 Streptococcal pharyngitis (principal); B95.0 Streptococcus, group A, as the cause of diseases classified elsewhere
CPT/HCPCS: 87804; 87880; 99281-25

== ENCOUNTER 2020-02-14 20:01 | Emergency (ER) | payer OTHER ==
[2020-02-14 20:15] VITALS: BP 135/95; PULSE 80; TEMP 97.8; BMI 36.3
[2020-02-14] MEDS ORDERED: MAG HYDROX/AL HYDROX/SIMETH 30 ML UNIT-DOSE CUP PO ONE (21:16)
[2020-02-14] MEDS ORDERED: FAMOTIDINE 20 MG/50 ML IVPB 20 MG/50 ML MG IVPB ONE ×2 (21:17→21:23)
[2020-02-14] MEDS ORDERED: MAG HYDROX/AL HYDROX/SIMETH 30 ML UNIT-DOSE CUP ONE (21:23)
[2020-02-14 21:39] LABS: BASO % 0.7 % (0-2.0); EOS % 1.5 % (0-4.5); HEMATOCRIT 40.6 % (32.4-45.2); HEMOGLOBIN 13.4 GM/dL (10.7-15.3); LYMPH % 32.5 % (8-40); MCH 26.9 pg (25.7-33.7); MEAN CELL VOLUME 81.6 fl (80-96); MEAN PLT VOLUME 7.2 fl (7.5-11.1); MONO % 8.7 % (3.8-10.2); NEUT % 56.6 % (42.8-82.8); PLATELET COUNT 348 K/MM3 (134-434); RBC 4.98 M/mm3 (3.60-5.2); RDW 13.4 % (11.6-15.6)
[2020-02-14 21:57] LABS: ALBUMIN 3.8 g/dl (3.4-5.0); BLOOD UREA NITROGEN 12.2 mg/dL (7-18); CALCIUM 9.5 mg/dL (8.5-10.1)
[2020-02-14 22:00] LABS: CREATININE 0.8 mg/dL (0.55-1.3)
[2020-02-14 22:02] LABS: BILIRUBIN,TOTAL 0.4 mg/dL (0.2-1); TOT PROT 7.1 g/dl (6.4-8.2)
[2020-02-14 22:05] LABS: HCG,QUALITATIVE URINE Negative
[2020-02-14 22:21] LABS: PH,URINE 6.5 (5.0-8.0); URINE APPEARANCE CLOUDY; URINE BILIRUBIN NEGATIVE (NEGATIVE); URINE COLOR YELLOW; URINE GLUCOSE (UA) NEGATIVE (NEGATIVE); URINE KETONE NEGATIVE (NEGATIVE); URINE LEUK ESTERASE NEGATIVE (NEGATIVE); URINE NITRITE NEGATIVE (NEGATIVE); URINE PROTEIN NEGATIVE (NEGATIVE)
[2020-02-14] MEDS ORDERED: morphine CARPU-JECT 4 MG/1 ML DISP.SYRIN IVPUSH ONE (23:03)
[2020-02-14] MEDS ORDERED: SODIUM CHLORIDE 0.9% 500 ML INFUS.BAG IV ONE (23:04)
[2020-02-14] MEDS ORDERED: morphine SULFATE 4 MG/ML VIAL ONE (23:07)
[2020-02-14] MEDS ORDERED: ACETAMINOPHEN 1000 MG/100 ML BAG IVPB ONE (23:45)
[2020-02-15] MEDS ORDERED: ACETAMINOPHEN INJECTION 100 ML IVPB ONE (00:10)
[2020-02-15] MEDS ORDERED: DICYCLOMINE HCL 20 MG TABLET PO ONE (00:46)
[2020-02-15] MEDS ORDERED: LIDOCAINE VISCOUS 2% ORAL/TOP 15 ML UNIT-DOSE CUP MM ONE (00:46)
[2020-02-15] MEDS ORDERED: morphine CARPU-JECT 2 MG/1 ML DISP.SYRIN IVPUSH ONE (00:46)
[2020-02-15] MEDS ORDERED: DICYCLOMINE HCL 10 MG CAPSULE ONE (00:49)
[2020-02-15] MEDS ORDERED: LIDOCAINE VISCOUS 2% ORAL/TOP 15 ML UNIT-DOSE CUP ONE (00:50)
== END 2020-02-15 02:59 | disposition home or self-care (01) ==
LOC: JER 20:01
PROC: 3E0333Z Introduction of Anti-inflammatory into Peripheral Vein, Percutaneous Approach (ICD-10-PCS; principal; 2020-02-14)
PROC: 3E033GC Introduction of Other Therapeutic Substance into Peripheral Vein, Percutaneous Approach (ICD-10-PCS; 2020-02-14)
PROC: 3E033NZ Introduction of Analgesics, Hypnotics, Sedatives into Peripheral Vein, Percutaneous Approach (ICD-10-PCS; 2020-02-14)
PROC: 3E033NZ Introduction of Analgesics, Hypnotics, Sedatives into Peripheral Vein, Percutaneous Approach (ICD-10-PCS; 2020-02-14)
DX: R10.12 Left upper quadrant pain (principal)
CPT/HCPCS: 36415; 74177-TC; 80053; 81003; 83690; 84703; 85025; 87086; 99285-25; J0131; Q9967

== ENCOUNTER 2020-12-22 14:12 | Emergency (ER) | payer OTHER ==
[2020-12-22 14:19] VITALS: BP 135/98; PULSE 77; TEMP 97.8; BMI 35.5
[2020-12-22] MEDS ORDERED: NAPROXEN 500 MG TABLET PO ONE (15:17)
[2020-12-22] MEDS ORDERED: NAPROXEN 500 MG TABLET ONE (15:19)
== END 2020-12-22 17:05 | disposition home or self-care (01) ==
LOC: JERFT 14:12 → JER 14:12 → JERFT 17:05
DX: G56.02 Carpal tunnel syndrome, left upper limb (principal)
CPT/HCPCS: 73110-TC-LT-FY; 73130-TC-LT-FY; 99284-25

== ENCOUNTER 2021-04-17 14:30 | Emergency (ER) | payer OTHER ==
[2021-04-17 15:04] VITALS: BP 122/89; PULSE 96; TEMP 98.1; BMI 35.5
[2021-04-17 15:36] LABS: BASO % 0.8 % (0-2.0); EOS % 2.7 % (0-4.5); HEMATOCRIT 38.1 % (32.4-45.2); HEMOGLOBIN 13.1 GM/dL (10.7-15.3); LYMPH % 32.5 % (8-40); MCH 28.1 pg (25.7-33.7); MCHC 34.3 g/dl (32.0-36.0); MEAN PLT VOLUME 6.7 fl (7.5-11.1); MONO % 6.7 % (3.8-10.2); NEUT % 57.3 % (42.8-82.8); PLATELET COUNT 314 10^3/uL (134-434); RBC 4.64 M/mm3 (3.60-5.2); RDW 12.8 % (11.6-15.6); WHITE BLOOD COUNT 5.4 K/mm3 (4.0-10.0)
[2021-04-17 15:46] LABS: EPI CELLS 5 /uL (0-25.1); HYALINE CASTS 0 /uL (0-3.1); URINE APPEARANCE CLEAR; URINE BACTERIA 131 /uL (0-1359); URINE BILIRUBIN NEGATIVE (NEGATIVE); URINE COLOR YELLOW; URINE GLUCOSE (UA) NEGATIVE (NEGATIVE); URINE KETONE NEGATIVE (NEGATIVE); URINE LEUK ESTERASE NEGATIVE (NEGATIVE); URINE NITRITE NEGATIVE (NEGATIVE); URINE PROTEIN NEGATIVE (NEGATIVE); URINE RBC 462 /uL (0-23.9); URINE UROBILINOGEN 0.2 mg/dL (0.2-1.0); URINE WBC 4 /uL (0-25.8)
[2021-04-17 15:57] LABS: ALBUMIN 3.7 g/dl (3.4-5.0); BLOOD UREA NITROGEN 8.2 mg/dL (7-18); CALCIUM 8.9 mg/dL (8.5-10.1); MAGNESIUM 2.4 mg/dL (1.8-2.4)
[2021-04-17 16:00] LABS: CREATININE 0.7 mg/dL (0.55-1.3)
[2021-04-17 16:02] LABS: BILIRUBIN,TOTAL 0.4 mg/dL (0.2-1); TOT PROT 6.7 g/dl (6.4-8.2)
[2021-04-17 16:08] LABS: HCG,QUALITATIVE URINE NEGATIVE
[2021-04-17] MEDS ORDERED: SODIUM CHLORIDE 0.9% 500 ML INFUS.BAG IV ONE (16:25)
== END 2021-04-17 18:02 | disposition home or self-care (01) ==
LOC: JER 14:30
DX: R00.2 Palpitations (principal); E86.0 Dehydration
CPT/HCPCS: 36415; 71045-TC-FY; 80053; 81003; 82550; 82962; 83735; 84443; 84703; 85025; 87086; 93005; 93010; 99285-25

== ENCOUNTER 2021-10-26 17:53 | Emergency (ER) | payer OTHER ==
[2021-10-26 18:00] VITALS: BP 123/86; PULSE 80; RESP 20; TEMP 98.4; BMI 35.5
[2021-10-26] MEDS ORDERED: IBUPROFEN 600 MG TABLET (FP) PO ONE ×2 (18:12→18:17)
[2021-10-26] MEDS ORDERED: DIPHTH,PERTUSS(ACELL),TET 0.5 ML DISP.SYRIN IM ONE ×2 (18:16→18:20)
== END 2021-10-26 18:38 | disposition home or self-care (01) ==
LOC: JER 17:53
PROC: 3E0234Z Introduction of Serum, Toxoid and Vaccine into Muscle, Percutaneous Approach (ICD-10-PCS; principal; 2021-10-26)
DX: H60.11 Cellulitis of right external ear (principal)
CPT/HCPCS: 90471; 90715; 99284-25

== ENCOUNTER 2022-04-14 19:03 | Emergency (ER) | payer OTHER ==
[2022-04-14 19:23] VITALS: BP 114/70; PULSE 85; RESP 18; TEMP 98.7; BMI 36.6
[2022-04-14] MEDS ORDERED: KETOROLAC TROMETHAMINE 30 MG/1 ML VIAL IM ONE (21:03)
[2022-04-14] MEDS ORDERED: KETOROLAC TROMETHAMINE 30 MG/1 ML VIAL ONE (21:08)
== END 2022-04-14 21:40 | disposition home or self-care (01) ==
LOC: JERFT 19:03
PROC: 3E0233Z Introduction of Anti-inflammatory into Muscle, Percutaneous Approach (ICD-10-PCS; principal; 2022-04-14)
DX: K08.89 Other specified disorders of teeth and supporting structures (principal)
CPT/HCPCS: 99284-25

== ENCOUNTER 2023-05-02 22:21 | Emergency (ER) | payer OTHER ==
[2023-05-02 22:35] VITALS: BP 138/90; PULSE 99; RESP 20; TEMP 97.7; BMI 35.5
[2023-05-02] MEDS ORDERED: ONDANSETRON *ODT* 4 MG TABLET ONE (23:04)
[2023-05-02] MEDS: ONDANSETRON *ODT* 4 MG TABLET SL ONE (23:20)
[2023-05-02] MEDS ORDERED: ACETAMINOPHEN INJECTION 100 ML IVPB ONE (23:24)
[2023-05-02] MEDS ORDERED: FAMOTIDINE 20 MG/50 ML IVPB 20 MG/50 ML MG IVPB ONE (23:25)
[2023-05-02 23:45] LABS: VENOUS BASE EXCESS 0.8 mmol/L (-2-2); VENOUS O2 SATURATION 53.1 % (70-80); VENOUS PCO2 43.7 mmHg (38-52); VENOUS PH 7.393 (7.310-7.410)
[2023-05-02 23:46] LABS: BASO % 0.8 % (0-2.0); EOS % 1.4 % (0-4.5); HEMATOCRIT 43.1 % (32.4-45.2); HEMOGLOBIN 14.6 GM/dL (10.7-15.3); LYMPH % 34.7 % (8-40); MCH 27.6 pg (25.7-33.7); MCHC 33.9 g/dl (32.0-36.0); MEAN CELL VOLUME 81.4 fl (80-96); MEAN PLT VOLUME 6.8 fl (7.5-11.1); MONO % 6.9 % (3.8-10.2); NEUT % 56.2 % (42.8-82.8); PLATELET COUNT 352 10^3/uL (134-434); RBC 5.29 M/mm3 (3.60-5.2); RDW 12.8 % (11.6-15.6); WHITE BLOOD COUNT 7.4 K/mm3 (4.0-10.0)
[2023-05-02] MEDS: ACETAMINOPHEN 1000 MG/100 ML BAG IVPB ONE (23:56)
[2023-05-02] MEDS: FAMOTIDINE 20 MG/50 ML IVPB 20 MG/50 ML MG IVPB ONE (23:56)
[2023-05-02] MEDS: SODIUM CHLORIDE 0.9% 500 ML INFUS.BAG IV ONE (23:56)
[2023-05-02] MEDS: ONDANSETRON 4 MG/2 ML VIAL IVPUSH ONE (23:57)
[2023-05-03 00:14] LABS: CALCIUM 9.3 mg/dL (8.5-10.1)
[2023-05-03 00:15] LABS: ALBUMIN 3.8 g/dl (3.4-5.0); BLOOD UREA NITROGEN 10.3 mg/dL (7-18); MAGNESIUM 2.1 mg/dL (1.8-2.4)
[2023-05-03 00:18] LABS: CREATININE 0.9 mg/dL (0.55-1.3)
[2023-05-03 00:20] LABS: BILIRUBIN,TOTAL 0.4 mg/dL (0.2-1); TOT PROT 7.2 g/dl (6.4-8.2)
[2023-05-03] MEDS: SODIUM CHLORIDE 0.9% 500 ML INFUS.BAG IV ONE (00:37)
[2023-05-03] MEDS ORDERED: METOCLOPRAMIDE HCL INJECTION 10 MG/2 ML VIAL ONE (01:54)
[2023-05-03] MEDS ORDERED: KETOROLAC TROMETHAMINE 15 MG/ML VIAL ONE (01:54)
[2023-05-03] MEDS: KETOROLAC TROMETHAMINE 15 MG/ML VIAL IVPUSH ONE (02:00)
[2023-05-03] MEDS: METOCLOPRAMIDE HCL INJECTION 10 MG/2 ML VIAL IVPUSH ONE (02:00)
[2023-05-03 02:10] LABS: URINE APPEARANCE CLOUDY; URINE BILIRUBIN NEGATIVE (NEGATIVE); URINE COLOR YELLOW; URINE GLUCOSE (UA) 3+ (NEGATIVE); URINE KETONE NEGATIVE (NEGATIVE); URINE LEUK ESTERASE NEGATIVE (NEGATIVE); URINE NITRITE NEGATIVE (NEGATIVE); URINE PROTEIN NEGATIVE (NEGATIVE); URINE UROBILINOGEN 0.2 mg/dL (0.2-1.0)
== END 2023-05-03 03:30 | disposition home or self-care (01) ==
LOC: JER 22:21
PROC: 3E033GC Introduction of Other Therapeutic Substance into Peripheral Vein, Percutaneous Approach (ICD-10-PCS; principal; 2023-05-02)
PROC: 3E033NZ Introduction of Analgesics, Hypnotics, Sedatives into Peripheral Vein, Percutaneous Approach (ICD-10-PCS; 2023-05-02)
PROC: 3E0333Z Introduction of Anti-inflammatory into Peripheral Vein, Percutaneous Approach (ICD-10-PCS; 2023-05-02)
PROC: 3E033GC Introduction of Other Therapeutic Substance into Peripheral Vein, Percutaneous Approach (ICD-10-PCS; 2023-05-02)
DX: R51.9 Headache, unspecified (principal); R11.2 Nausea with vomiting, unspecified; R19.7 Diarrhea, unspecified; E11.65 Type 2 diabetes mellitus with hyperglycemia; Z20.822 Contact with and (suspected) exposure to COVID-19
CPT/HCPCS: 0241U-QW; 36415; 80053; 81003; 82803; 82962; 83690; 83735; 84703; 85025; 87086; 93005; 93010; 96365; 96375; 99284-25; J0131; Q0162

== ENCOUNTER 2023-09-14 03:10 | Emergency (ER) | payer OTHER ==
[2023-09-14 03:26] VITALS: BMI 36.1
[2023-09-14] MEDS ORDERED: METOCLOPRAMIDE HCL INJECTION 10 MG/2 ML VIAL ONE (03:50)
[2023-09-14] MEDS ORDERED: ACETAMINOPHEN INJECTION 100 ML IVPB ONE (03:51)
[2023-09-14] MEDS: ACETAMINOPHEN 1000 MG/100 ML BAG IVPB ONE (03:59)
[2023-09-14] MEDS: METOCLOPRAMIDE HCL INJECTION 10 MG/2 ML VIAL IVPUSH ONE (03:59)
[2023-09-14] MEDS: FAMOTIDINE 20 MG/50 ML IVPB 20 MG/50 ML MG IVPB ONE (04:12)
[2023-09-14] MEDS: MAG HYDROX/AL HYDROX/SIMETH 30 ML UNIT-DOSE CUP PO ONE (04:12)
[2023-09-14] MEDS ORDERED: FAMOTIDINE 20 MG/50 ML IVPB 20 MG/50 ML MG IVPB ONE (04:13)
[2023-09-14] MEDS ORDERED: MAG HYDROX/AL HYDROX/SIMETH 30 ML UNIT-DOSE CUP ONE (04:13)
[2023-09-14 04:21] LABS: BASO % 0.8 % (0-2.0); HEMATOCRIT 39.4 % (32.4-45.2); HEMOGLOBIN 13.9 GM/dL (10.7-15.3); INR 0.92 (0.83-1.09); LYMPH % 31.2 % (8-40); MCH 28.8 pg (25.7-33.7); MCHC 35.3 g/dl (32.0-36.0); MEAN CELL VOLUME 81.7 fl (80-96); MONO % 7.3 % (3.8-10.2); NEUT % 59.7 % (42.8-82.8); PLATELET COUNT 349 10^3/uL (134-434); PROTHROMBIN TIME (PATIENT) 10.6 SEC (9.7-13.0); RBC 4.82 M/mm3 (3.60-5.2); RDW 13.2 % (11.6-15.6); WHITE BLOOD COUNT 9.1 K/mm3 (4.0-10.0)
[2023-09-14 04:24] LABS: ACTIVATED PTT 32.2 SECONDS (25.2-36.5)
[2023-09-14 04:41] LABS: POTASSIUM 4.1 mmol/L (3.5-5.1)
[2023-09-14 04:43] LABS: BLOOD UREA NITROGEN 11.4 mg/dL (7-18); CALCIUM 9.3 mg/dL (8.5-10.1)
[2023-09-14 04:47] LABS: BILIRUBIN,TOTAL 0.4 mg/dL (0.2-1); CREATININE 0.8 mg/dL (0.55-1.3); TOT PROT 7.1 g/dl (6.4-8.2)
[2023-09-14 08:45] VITALS: BP 168/74; PULSE 71; RESP 16; TEMP 97.7
== END 2023-09-14 08:56 | disposition home or self-care (01) ==
LOC: JER 03:10
PROC: 3E033GC Introduction of Other Therapeutic Substance into Peripheral Vein, Percutaneous Approach (ICD-10-PCS; principal; 2023-09-14)
PROC: 3E033GC Introduction of Other Therapeutic Substance into Peripheral Vein, Percutaneous Approach (ICD-10-PCS; 2023-09-14)
PROC: 3E033NZ Introduction of Analgesics, Hypnotics, Sedatives into Peripheral Vein, Percutaneous Approach (ICD-10-PCS; 2023-09-14)
DX: R51.9 Headache, unspecified (principal); H53.149 Visual discomfort, unspecified; R11.10 Vomiting, unspecified
CPT/HCPCS: 36415; 70450-TC; 80053; 82962; 84484; 84703; 85025; 85610; 85730; 93005; 93010; 99285-25; J0131